=== PATIENT | male | born 2000 | race African-American/Black ===

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

== ENCOUNTER 2019-09-02 07:33 | Day surgery (SDC) | payer OTHER ==
[2019-09-01 11:45] VITALS: BMI 36.1
[2019-09-02] MEDS ORDERED: MIDAZOLAM HCL 2 MG/2 ML SINGLE DOSE VIAL ONE ×4 (08:44→09:33)
[2019-09-02] MEDS ORDERED: ROPIVACAINE HCL 0.5% 30ML VIAL ONE (08:44)
--- NOTE | 2019-09-02 09:16 | HP ---
Satellite H - Chief Complaint Chief Complaint: right shoulder pain - Past Medical History Allergies/Adverse Reactions: Allergies Allergy/AdvReac Type Severity Reaction Status Date / Time fish derived Allergy Verified 09/02/19 08:22 nut - unspecified Allergy Verified 09/02/19 08:22 soy Allergy Verified 09/02/19 08:22 wheat Allergy Verified 09/02/19 08:22 - Current Medications Current Medications: Home Medications Medication Instructions Recorded Fluticasone/Vilanterol [Breo 100 cap PO DAILY 09/01/19 Ellipta 100-25 Mcg INH] Oxycodone HCl/Acetaminophen 1 - 2 tab PO Q6H #30 tab MDD 6 09/02/19 [Percocet 5-325 mg Tablet] Satellite Physical Exam - Physical Examination Vital Signs: Vital Signs Period Temp Pulse Resp BP Sys/Fonseca Pulse Ox Last 24 Hr 97.9 F 78 18 131/68 99 General Appearance: Well Nourished, Well Developed, Alert & Oriented x3 ENT: Clear Lung: Normal air movement Extremities: Other (right shoulder- + ttp, dec rom, + apprehension, + obriens, nvi, MRI + labral tear) Neurological: Intact, Alert, Oriented Satellite Impression/Plan - Impression/Plan Impression: right shoulder internal derangement Operative Procedure: right shoulder arthroscopy with labral repair Date to be Performed: 09/02/19
[2019-09-02] MEDS ORDERED: ceFAZolin SODIUM 1 GM VIAL IVPB ONE (09:30)
[2019-09-02] MEDS ORDERED: ceFAZolin SODIUM 1 GM VIAL ONE (09:33)
[2019-09-02] MEDS ORDERED: PROPOFOL 20 ML ONE ×2 (09:50→10:05)
[2019-09-02] MEDS ORDERED: oxyCODONE HCL 5 MG TABLET PO PRN ×2 (10:21)
[2019-09-02] MEDS ORDERED: ONDANSETRON 4 MG/2 ML VIAL IVPUSH PRN (10:21)
--- NOTE | 2019-09-02 10:24 | OP ---
Operative Note - Note: Operative Date: 09/02/19 ([facility]) Pre-Operative Diagnosis: right shoulder internal derangement Operation: right shoulder arthroscopy with labral debridement Post-Operative Diagnosis: Same as Pre-op Surgeon: Jose Grimaldo Paving Contractor: Kin Hernandez Anesthesia: General, Local Specimens Removed: shavings Estimated Blood Loss (mls): 5
[2019-09-02] MEDS ORDERED: LACTATED RINGERS SOLUTION 1,000 ML IV SCH (10:30)
[2019-09-02] MEDS ORDERED: ACETAMINOPHEN 325 MG TABLET (FP) ONE (12:29)
[2019-09-02] MEDS ORDERED: ACETAMINOPHEN 325 MG TABLET (FP) PO ONE ×2 (12:30→12:32)
[2019-09-02] MEDS ORDERED: ONDANSETRON 4 MG/2 ML VIAL ONE (12:34)
[2019-09-02 13:52] VITALS: BP 125/60; PULSE 73; TEMP 98
--- NOTE | 2019-09-02 18:11 | OP ---
DATE OF OPERATION: 09/02/2019 PREOPERATIVE DIAGNOSIS: Right shoulder labral tear. POSTOPERATIVE DIAGNOSIS: Right shoulder labral tear. PROCEDURE: Arthroscopy, right shoulder, with labral debridement. SURGICAL ATTENDING: Gage Black M.D. ENGINEERING SYSTEMS ANALYST: Felipe Carrillo SECOND TOP FRAME MAKER: Jose Grimaldo M.D. ANESTHESIA: Regional and general. CLOSURE: 3-0 nylon. COMPLICATIONS: None. CONDITION: To recovery in stable condition. DESCRIPTION OF OPERATIVE PROCEDURE: The patient was taken to the operating room on September 02, 2019. Regional and general anesthesia were administered by the anesthesiologist. IV Kefzol was administered prophylactically prior to the case. The patient was placed in the beach-chair position with all prominences well padded. The right shoulder area was prepped and draped in the usual sterile fashion. The posterior portal was made 2 fingerbreadths below the trocar. The anterior portal was made under direct visualization using a spinal needle followed by a 15-blade blunt trochar. Circumferential exam of glenohumeral joint revealed the following: Intact glenoid and humeral head, articular cartilage, biceps and biceps anchor, loose bodies in the axillary pouch. The rotator cuff was intact throughout. The labrum was followed, was completely intact anteriorly, inferiorly. The biceps anchor and the superior anterior posterior labrum was found to be completely intact. Posteriorly, labrum was found to be slightly detached posteriorly but with a fraying. Most of the labrum was found to be intact in this area. Attempts were made to try to see if there was tissue to be repaired by passing suture lassos, but the torn portion of the labrum was very small, and there was just a lot debrided, and the rest of the labrum was left in situ. Probing on the revealed good stability throughout. The fluid was drained from the shoulder, and trocars were removed. The portals were closed using 3-0 nylon, sterile pressure dressing followed by a sling was applied. Patient was awakened from anesthesia and transferred to recovery in stable condition. No complications. Estimated blood loss negligible. JOSE GRIMALDO M.D. [id number]
--- NOTE | 2019-09-04 16:22 | PATH ---
Surgical Pathology Report Patient Name: TANI ESCOTO Med. Rec. #: [id number] /Age/Gender: 2000 (Age: 19) / M Account: [id number] Location: [facility] SUR[facility] Taken: 09/02/2019 Received: 09/02/2019 Reported: 09/04/2019 Physicians: Jose Grimaldo M.D. Specimen(s) Received RIGHT SHOULDER SHAVINGS Clinical History Right shoulder labral tear Final Diagnosis SHOULDER SHAVINGS, RIGHT, ARTHROSCOPY: FRAGMENTS OF BENIGN CARTILAGE, BONE, DENSE FIBROCONNECTIVE TISSUE, ADIPOSE TISSUE, AND SKELETAL MUSCLE. Electronically Signed Neha Zarate M.D. Gross Description Received in formalin, labeled "right shoulder shavings," is a 2.5 x 2.0 x 0.3 cm. aggregate of bradshaw-yellow soft tissue fragments. The specimen is entirely submitted in one cassette. 09/03/201909/03/2019
== END 2019-09-02 13:30 | disposition home or self-care (01) ==
LOC: JASU-SURG 07:33
PROVIDERS: ATTEND Orthopaedic Surgery
PROC: 0RBJ4ZZ Excision of Right Shoulder Joint, Percutaneous Endoscopic Approach (ICD-10-PCS; principal; 2019-09-02 09:30)
DX: S43.431A Superior glenoid labrum lesion of right shoulder, initial encounter (principal); X58.XXXA Exposure to other specified factors, initial encounter; Y93.9 Activity, unspecified; Y92.9 Unspecified place or not applicable
CPT/HCPCS: 88304-TC; 94760

== ENCOUNTER 2019-12-05 09:43 | Emergency (ER) | payer OTHER ==
[2019-12-05 10:01] VITALS: PULSE 65; TEMP 97.7; BMI 37.5
[2019-12-05] MEDS ORDERED: ACETAMINOPHEN 1000 MG/100 ML VIAL (NON FORMULARY) IVPB ONE (10:07)
[2019-12-05] MEDS ORDERED: SODIUM CHLORIDE 1,000 ML IV STA (10:07)
--- NOTE | 2019-12-05 10:07 | PDOC ---
History of Present Illness - General Chief Complaint: Pain Stated Complaint: ABDOMINAL PAIN Time Seen by Provider: 12/05/19 10:06 - History of Present Illness Initial Comments: 12/05/19 10:31 The patient is a 19 year old male with no significant PMH who presents for evaluation of abdominal pain and flank pain. The patient reports acute onset of left lower quadrant 10/10 sharp abdominal pain after a bowel movement this morning prompting his presentation to the ED for further evaluation. He states that the pain radiates to his left flank and is intermittent as well. He denies any similar symptoms in the past and otherwise denies fevers, chills, SOB , chest pain, nausea, vomiting, or changes with urination or bowel movements. Past History - Past Medical History Allergies/Adverse Reactions: Allergies Allergy/AdvReac Type Severity Reaction Status Date / Time fish derived Allergy Verified 12/05/19 09:54 nut - unspecified Allergy Verified 12/05/19 09:54 soy Allergy Verified 12/05/19 09:54 wheat Allergy Verified 12/05/19 09:54 Home Medications: Ambulatory Orders Fluticasone/Vilanterol [Breo Ellipta 100-25 Mcg INH] 100 cap PO DAILY 09/01/19 Anemia: No Asthma: Yes Cancer: No Cardiac Disorders: No CVA: No COPD: No CHF: No Dementia: No Diabetes: No GI Disorders: No Disorders: No HTN: No Hypercholesterolemia: No Liver Disease: No Seizures: No Thyroid Disease: No - Surgical History Abdominal Surgery: No Appendectomy: No Cardiac Surgery: No Cholecystectomy: No Lung Surgery: No Neurologic Surgery: No Orthopedic Surgery: No - Immunization History Immunization Up to Date: No - Psycho Social/Smoking Cessation Hx Smoking History: Never smoked Have you smoked in the past 12 months: No Information on smoking cessation initiated: No Hx Alcohol Use: No Drug/Substance Use Hx: No Substance Use Type: None Hx Substance Use Treatment: No Review of Systems - Review of Systems Comments:: 12/05/19 10:33 Constitutional: No fevers, chills, fatigue, malaise HEENT: No Rhinorrhea, nasal congestion, visual changes Cardiovascular: No chest pain, syncope, palpitations, lightheadedness Respiratory: No Cough, SOB, Hemoptysis, Gastrointestinal: Abdominal pain. No Nausea, Vomiting, Constipation, Diarrhea, Melena Genitourinary: Flank, pain. No Dysuria, Frequency, Urgency, Hesitancy, Hematuria , Musculoskeletal: No Myalgia, arthralgia Skin: No rashes, itching, bruising, pallor Neurologic: No Headache, Dizziness, Numbness, Weakness, or Tingling Psychiatric: No Hallucinations. No SI or HI *Physical Exam - Vital Signs Last Vital Signs Temp Pulse Resp BP Pulse Ox 97.7 F 65 22 H 110/61 100 12/05/19 09:52 12/05/19 09:52 12/05/19 09:52 12/05/19 09:52 12/05/19 09:52 - Physical Exam 12/05/19 10:33 General Appearance: Nourished. No Apparent Distress HEENT: No Pharyngeal Erythema, Tonsillar Exudate, Tonsillar Erythema Neck: No Cervical Lymphadenopathy Respiratory/Chest: Lungs Clear, Normal Breath Sounds. No Crackles, Rales, Rhonchi, Wheezing Cardiovascular: Regular Rhythm, Regular Rate. No Murmur, Gallops, Rubs Gastrointestinal/Abdominal: Normal Bowel Sounds, Soft. Mild left lower quadrant tenderness to palpation. No Guarding, Rebound, Genital Exam: Normal appearing glans, No discharge noted. Cremaster reflex present bilaterally. Normal testes bilaterally. Musculoskeletal: No CVA Tenderness Extremity: Normal Capillary Refill Integumentary: Normal Color, Dry, Warm Neurologic: Fully Oriented, Alert, Normal Mood/Affect, Normal Response, ED Treatment Course - LABORATORY CBC & Chemistry Diagram: 12/05/19 10:08 12/05/19 10:08 Medical Decision Making - Medical Decision Making 12/05/19 10:35 The patient is a 19 year old male with no significant PMH who presents for evaluation of abdominal pain and flank pain. Differential includes but is not limited to: Nephrolethiasis, UTI, Infectious, Metabolic derangement. Given the patient's history and physical exam, we will obtain a cbc, cmp, ua, urine culture, spiral renal CT to evaluate further. We will treat with tylenol, toradol, iv fluids and continue to monitor and reassess while here in the ED. 12/05/19 12:18 CBC, cmp, ua were unremarkable. CT did not demonstrate any acute pathology but noted a groundglass opacity in the right lower lobe as read by our radiologist. The patient has not respiratory complaints on exam and has been provided a copy of his results. The patient was reassessed and reports improvement in their symptoms. We are comfortable discharging the patient home in stable condition. Patient and family made aware of impression and plan, return precautions discussed including but not limited to worsening pain or symptoms, fevers, or signs of infection, chest pain, respiratory distress, inability to tolerate oral intake, dehydration, syncope, or neurologic changes. The patient is to follow up with PMD as recommended within 1 week, follow up information provided and the patient will call for an appointment. The patient is to take medications as instructed for duration of time and continue with supportive care , avoid triggers and precipitants. Patient is safe for outpatient follow-up. Discharge - Discharge Information Problems reviewed: Yes Clinical Impression/Diagnosis: Abdominal pain Qualifiers: Abdominal location: unspecified location Qualified Code(s): R10.9 - Unspecified abdominal pain Condition: Stable Disposition: HOME - Follow up/Referral Referrals: Clotilde Rodriguez MD [Primary Care Provider] - - Patient Discharge Instructions Patient Printed Discharge Instructions: DI for Abdominal Pain-Adult Additional Instructions: 1) Please follow-up with your primary care doctor in the next 2-3 days. Please call tomorrow to schedule a follow up appointment. If you cannot follow up with your doctor within 1 week please return to the Emergency Department for any urgent issues. 2) Your laboratory / imaging results were normal here in the ER. 3) If you have any worsening of symptoms or any other concerns, please return to the ER immediately. Return if worsening symptoms including fevers, headache, vomiting, visual or hearing disturbances, abdominal pain, chest pain, shortness of breath, syncope, dehydration, inability to take things by mouth/vomiting, altered mental status, or worsening concerning symptoms. 4) Please continue taking your home medications as directed. Side effects may include upset stomach, abdominal pain, vomiting, or diarrhea. Do not drink alcohol with your medications. - Post Discharge Activity
[2019-12-05] MEDS ORDERED: KETOROLAC TROMETHAMINE 30 MG/1 ML VIAL IVPUSH ONE (10:13)
[2019-12-05] MEDS ORDERED: ACETAMINOPHEN INJECTION 100 ML IVPB ONE (10:16)
[2019-12-05] MEDS ORDERED: KETOROLAC TROMETHAMINE 30 MG/1 ML VIAL ONE (10:16)
[2019-12-05 10:27] LABS: BASO % 1.3 % (0-2.0); EOS % 7.4 % (0-4.5); HEMATOCRIT 48.3 % (35.4-49); HEMOGLOBIN 16.5 GM/dL (11.7-16.9); MCHC 34.1 g/dl (32.0-35.9); MEAN CELL VOLUME 88.1 fl (80-96); MEAN PLT VOLUME 8.9 fl (7.5-11.1); NEUT % 35.3 % (42.8-82.8); PLATELET COUNT 161 K/MM3 (134-434); RBC 5.49 M/mm3 (4.00-5.60); RDW 14.4 % (11.9-15.9); WHITE BLOOD COUNT 4.6 K/mm3 (4.0-10.0)
[2019-12-05 10:40] LABS: URINE APPEARANCE CLEAR; URINE BILIRUBIN NEGATIVE (NEGATIVE); URINE COLOR YELLOW; URINE GLUCOSE (UA) NEGATIVE (NEGATIVE); URINE KETONE NEGATIVE (NEGATIVE); URINE LEUK ESTERASE NEGATIVE (NEGATIVE); URINE NITRITE NEGATIVE (NEGATIVE); URINE PROTEIN NEGATIVE (NEGATIVE)
[2019-12-05 10:53] LABS: ALBUMIN 4.1 g/dl (3.4-5.0); BILIRUBIN,TOTAL 0.8 mg/dL (0.2-1); BLOOD UREA NITROGEN 11.8 mg/dL (7-18); CALCIUM 9.7 mg/dL (8.5-10.1); CREATININE 1.3 mg/dL (0.55-1.3); TOT PROT 7.3 g/dl (6.4-8.2)
--- NOTE | 2019-12-05 10:59 | PDOC ---
Attending Attestation - Resident Resident Name: Benny Ford - ED Attending Attestation I have performed the following: I have examined & evaluated the patient, The case was reviewed & discussed with the resident, I agree w/resident's findings & plan, Exceptions are as noted - HPI HPI: 12/05/19 11:42 19-year-old gentleman history of asthma presenting with complaint of left lower quadrant pain. Patient states that he was in his usual state of health this morning he woke up had some snacks went to the restroom had a normal bowel movement. After his bowel movement approximately 2 minutes later he began to have a severe sharp left lower quadrant pain that is nonradiating without associated nausea, vomiting, chills, fevers, diarrhea, dysuria. There is no associated back pain or testicular pain. Patient states the pain was fairly severe until arrival. Patient denies having any history of similar pain in the past. Patient denies any other symptoms including recent cough, chest pain, lightheadedness, palpitations, urinary frequency, ingestion of new foods.; Exam: GENERAL: The patient is awake, alert, and fully oriented, Nontoxic - in no acute distress. HEAD: Normocephalic, atraumatic. LUNGS: Breath sounds equal, clear to auscultation bilaterally. No wheezes, no rhonchi, no rales. HEART: Regular rate and rhythm, normal S1 and S2 without murmur, rub or gallop. ABDOMEN: Soft, nontender, No guarding, no rebound. No CVA tenderness, negative Gonzalez signs, no tenderness at McBurney EXTREMITIES: Normal range of motion, no edema. NEUROLOGICAL: No facial assymetry, Normal speech, PSYCH: Normal mood, normal affect. SKIN: Warm, Dry, normal turgor, Differential for the patient's symptoms includes possible kidney stones, UTI, MSK pain, Obtained blood work, urine, CT of the abdomen. Patient's blood work and urine is unremarkable with signs of UTI or hematuria. CT results are pending Patient is currently feeling well, his abdominal exam currently is a normal exam without any focal tenderness rebound or CVA tenderness. - Physicial Exam PE: 12/06/19 09:52 see above - Medical Decision Making pts CT results were w/o any acute findings pt feeling improved rpeat exam shows soft nontender abdomen. will dc the pt with pmd outpt fu return precautions were discussed including any abd pain, fever/cihlls, vomiting or other concerns.
[2019-12-05 12:38] VITALS: BP 112/98
== END 2019-12-05 12:39 | disposition home or self-care (01) ==
LOC: JER 09:43
PROC: 3E033NZ Introduction of Analgesics, Hypnotics, Sedatives into Peripheral Vein, Percutaneous Approach (ICD-10-PCS; principal; 2019-12-05)
PROC: 3E0333Z Introduction of Anti-inflammatory into Peripheral Vein, Percutaneous Approach (ICD-10-PCS; 2019-12-05)
DX: R10.32 Left lower quadrant pain (principal); Z91.013 Allergy to seafood; Z91.018 Allergy to other foods
CPT/HCPCS: 36415; 74176-TC; 80053; 81003; 83690; 85025; 87086; 99285-25; J0131; J7030

== ENCOUNTER 2020-08-20 03:36 | Inpatient (IN) | payer OTHER ==
[2020-08-20] MEDS ORDERED: SODIUM CHLORIDE 2,722 ML IV ONE (04:05)
[2020-08-20 04:39] LABS: BASO % 0.7 % (0-2.0); EOS % 8.8 % (0-4.5); HEMATOCRIT 51.4 % (35.4-49); HEMOGLOBIN 17.3 GM/dL (11.7-16.9); LYMPH % 30.7 % (8-40); MCH 29.8 pg (25.7-33.7); MCHC 33.6 g/dl (32.0-35.9); MEAN CELL VOLUME 88.5 fl (80-96); MEAN PLT VOLUME 8.9 fl (7.5-11.1); MONO % 12.3 % (3.8-10.2); NEUT % 47.5 % (42.8-82.8); PLATELET COUNT 160 K/MM3 (134-434); RBC 5.81 M/mm3 (4.00-5.60); RDW 13.9 % (11.9-15.9); WHITE BLOOD COUNT 5.5 K/mm3 (4.0-10.0)
[2020-08-20] MEDS ORDERED: METOCLOPRAMIDE HCL INJECTION 10 MG/2 ML VIAL IVPUSH ONE (04:47)
[2020-08-20] MEDS ORDERED: ACETAMINOPHEN 1000 MG/100 ML VIAL (NON FORMULARY) IVPB ONE (04:47)
[2020-08-20 04:51] LABS: INR 1.04 (0.83-1.09); PROTHROMBIN TIME (PATIENT) 12.6 SEC (9.7-13.0)
[2020-08-20 04:52] LABS: CHLORIDE 105 mmol/L (98-107); POTASSIUM 4.1 mmol/L (3.5-5.1); SODIUM 139 mmol/L (136-145)
[2020-08-20] MEDS ORDERED: METOCLOPRAMIDE HCL INJECTION 10 MG/2 ML VIAL ONE (04:52)
[2020-08-20 04:54] LABS: CALCIUM 9.1 mg/dL (8.5-10.1)
[2020-08-20 04:55] LABS: ALBUMIN 4.1 g/dl (3.4-5.0); ANION GAP 7 MMOL/L (8-16); BLOOD UREA NITROGEN 14.2 mg/dL (7-18); CO2 27 mmol/L (21-32); GLUCOSE,RANDOM 104 mg/dL (74-106)
[2020-08-20 04:58] LABS: CREATININE 1.1 mg/dL (0.55-1.3); SGOT/AST 28 U/L (15-37); SGPT/ALT 37 U/L (13-61)
[2020-08-20 05:00] LABS: BILIRUBIN,TOTAL 0.6 mg/dL (0.2-1); TOT PROT 7.6 g/dl (6.4-8.2)
[2020-08-20 05:01] LABS: ALK PHOS 52 U/L (45-117)
[2020-08-20] MEDS ORDERED: LORazepam 2 MG/ML SDV VIAL ONE (06:14)
[2020-08-20] MEDS ORDERED: LIDOCAINE HCL 1%, 10 MG/ML (20ML VIAL) ONE (06:20)
[2020-08-20] MEDS ORDERED: LIDOCAINE HCL 1%, 10 MG/ML (50 mL VIAL) SQ ONE (06:20)
[2020-08-20] MEDS ORDERED: CEFTRIAXONE 1 GM in DEXTROSE 5%-WATER - 100 ML IVPB ONE ×2 (07:04→07:12)
[2020-08-20] MEDS ORDERED: VANCOMYCIN 1,000 MG in DEXTROSE 5%-WATER - 250 ML IVPB ONE (07:04)
[2020-08-20] MEDS ORDERED: CEFTRIAXONE 2 GM in DEXTROSE 5%-WATER - 50 ML IVPB ONE (07:14)
[2020-08-20] MEDS ORDERED: CEFTRIAXONE 2 GM/100 ML BAG IVPB ONE (07:30)
[2020-08-20] MEDS ORDERED: VANCOMYCIN 1 GRAM (PRE-DOCKED) 1,000 MG/250 ML BAG IVPB ONE (07:30)
[2020-08-20] MEDS ORDERED: ACETAMINOPHEN 325 MG TABLET (FP) ONE (11:36)
[2020-08-20] MEDS: ACETAMINOPHEN 500 MG TABLET (FP) PO PRN ×3 (11:53→20:07)
[2020-08-20] MEDS ORDERED: ACETAMINOPHEN 500 MG TABLET (FP) ONE ×2 (16:04→17:11)
[2020-08-20] MEDS ORDERED: ACETAMINOPHEN 500 MG TABLET (FP) PO ONE ×2 (17:12→21:00)
[2020-08-20 20:33] VITALS: BMI 38.2
[2020-08-20 20:54] LABS: EPI CELLS 8 /uL (0-25.1); HYALINE CASTS 2 /uL (0-3.1); PH,URINE 6.5 (5.0-8.0); URINE APPEARANCE CLEAR; URINE BACTERIA 5 /uL (0-1359); URINE BILIRUBIN NEGATIVE (NEGATIVE); URINE COLOR YELLOW; URINE GLUCOSE (UA) NEGATIVE (NEGATIVE); URINE KETONE 1+ (NEGATIVE); URINE LEUK ESTERASE NEGATIVE (NEGATIVE); URINE NITRITE NEGATIVE (NEGATIVE); URINE PROTEIN TRACE (NEGATIVE); URINE RBC 7 /uL (0-23.9); URINE WBC 5 /uL (0-25.8)
[2020-08-21] MEDS: ACETAMINOPHEN 500 MG TABLET (FP) PO PRN ×3 (09:58→21:34)
[2020-08-21] MEDS ORDERED: DEXTROSE 5%-WATER 100 ML IVPB ONE (13:24)
[2020-08-21] MEDS: CEFTRIAXONE 2 GM in DEXTROSE 5%-WATER 100 ML IVPB SCH (13:27)
[2020-08-21] MEDS ORDERED: WATER IVPB SCH ×2 (14:15→14:16)
[2020-08-21] MEDS ORDERED: ACYCLOVIR 1000 MG (50MG/ML) VIAL IVPB SCH (14:15)
[2020-08-21] MEDS ORDERED: ACYCLOVIR SODIUM IVPB SCH ×2 (14:15→14:16)
[2020-08-21] MEDS ORDERED: DEXTROSE 5% IVPB SCH ×2 (14:15→14:16)
[2020-08-21] MEDS: D5-1/2NS+20 MEQ KCL - 20 MEQ/1,000 ML INFUS.BAG IV SCH (16:36)
[2020-08-21] MEDS: DEXTROSE 5% IVPB SCH ×2 (16:37→21:47)
[2020-08-21] MEDS: ACYCLOVIR SODIUM IVPB SCH ×2 (16:37→21:47)
[2020-08-21] MEDS: WATER IVPB SCH ×2 (16:37→21:47)
[2020-08-21] MEDS: VANCOMYCIN 1 GRAM (PRE-DOCKED) 1,000 MG/250 ML BAG IVPB SCH (18:51)
[2020-08-21] MEDS ORDERED: PT OWN MED DRAWER 7, Y5N ONE (20:51)
[2020-08-21] MEDS: BUDESONIDE/FORMETEROL FUMARATE 160/4.5 mcg INHALER IH SCH (21:32)
[2020-08-21] MEDS: DORZOLAMIDE 2% HCL OPHTHALMIC SOLUTION 10 ML BOTTLE OU SCH (21:33)
[2020-08-22] MEDS: VANCOMYCIN 1 GRAM (PRE-DOCKED) 1,000 MG/250 ML BAG IVPB SCH ×2 (04:18→18:41)
[2020-08-22] MEDS: DEXTROSE 5% IVPB SCH ×3 (06:45→22:08)
[2020-08-22] MEDS: ACYCLOVIR SODIUM IVPB SCH ×3 (06:45→22:08)
[2020-08-22] MEDS: WATER IVPB SCH ×3 (06:45→22:08)
[2020-08-22] MEDS ORDERED: DEXTROSE 5%-WATER 100 ML IVPB ONE (11:48)
[2020-08-22] MEDS: CEFTRIAXONE 2 GM in DEXTROSE 5%-WATER 100 ML IVPB SCH (11:59)
[2020-08-22] MEDS: BUDESONIDE/FORMETEROL FUMARATE 160/4.5 mcg INHALER IH SCH ×2 (12:01→22:07)
[2020-08-22] MEDS: DORZOLAMIDE 2% HCL OPHTHALMIC SOLUTION 10 ML BOTTLE OU SCH ×2 (12:02→22:07)
[2020-08-22] MEDS ORDERED: PT OWN MED DRAWER 7, Y5N ONE ×2 (16:10→21:26)
[2020-08-22] MEDS: D5-1/2NS+20 MEQ KCL - 20 MEQ/1,000 ML INFUS.BAG IV SCH (16:20)
[2020-08-22 18:17] LABS: CSF APPEARANCE CLEAR; CSF COLOR COLORLESS
[2020-08-22 18:20] LABS: CSF WBC 318
[2020-08-22 18:55] LABS: BF GLUCOSE (CSF ONLY) 44 mg/dL (40-70)
[2020-08-23] MEDS: VANCOMYCIN 1 GRAM (PRE-DOCKED) 1,000 MG/250 ML BAG IVPB SCH (04:09)
[2020-08-23] MEDS: DEXTROSE 5% IVPB SCH ×3 (06:54→21:54)
[2020-08-23] MEDS: WATER IVPB SCH ×3 (06:54→21:54)
[2020-08-23] MEDS: ACYCLOVIR SODIUM IVPB SCH ×3 (06:54→21:54)
[2020-08-23 08:27] LABS: HEMATOCRIT 49.8 % (35.4-49); HEMOGLOBIN 17.1 GM/dL (11.7-16.9); MCH 30.6 pg (25.7-33.7); MCHC 34.3 g/dl (32.0-35.9); MEAN CELL VOLUME 89.3 fl (80-96); PLATELET COUNT 186 K/MM3 (134-434); RBC 5.58 M/mm3 (4.00-5.60); RDW 13.7 % (11.9-15.9); WHITE BLOOD COUNT 6.8 K/mm3 (4.0-10.0)
[2020-08-23 08:40] LABS: POTASSIUM 4.1 mmol/L (3.5-5.1)
[2020-08-23 08:49] LABS: ALBUMIN 3.8 g/dl (3.4-5.0); BLOOD UREA NITROGEN 10.5 mg/dL (7-18); CALCIUM 9.2 mg/dL (8.5-10.1)
[2020-08-23] MEDS ORDERED: DEXTROSE 5%-WATER 100 ML IVPB ONE (08:53)
[2020-08-23 08:54] LABS: BILIRUBIN,TOTAL 0.6 mg/dL (0.2-1); TOT PROT 7.4 g/dl (6.4-8.2)
[2020-08-23] MEDS: CEFTRIAXONE 2 GM in DEXTROSE 5%-WATER 100 ML IVPB SCH (09:02)
[2020-08-23] MEDS: DORZOLAMIDE 2% HCL OPHTHALMIC SOLUTION 10 ML BOTTLE OU SCH ×2 (09:06→21:54)
[2020-08-23] MEDS: BUDESONIDE/FORMETEROL FUMARATE 160/4.5 mcg INHALER IH SCH ×2 (09:06→21:54)
[2020-08-23] MEDS ORDERED: PT OWN MED DRAWER 7, Y5N ONE ×3 (14:20→21:51)
[2020-08-23] MEDS: D5-1/2NS+20 MEQ KCL - 20 MEQ/1,000 ML INFUS.BAG IV SCH ×2 (14:50→18:35)
[2020-08-24] MEDS ORDERED: PT OWN MED DRAWER 7, Y5N ONE ×2 (05:35→07:29)
[2020-08-24] MEDS: WATER IVPB SCH ×3 (05:46→22:19)
[2020-08-24] MEDS: DEXTROSE 5% IVPB SCH ×3 (05:46→22:19)
[2020-08-24] MEDS: ACYCLOVIR SODIUM IVPB SCH ×3 (05:46→22:19)
[2020-08-24] MEDS: D5-1/2NS+20 MEQ KCL - 20 MEQ/1,000 ML INFUS.BAG IV SCH ×2 (05:47→19:59)
[2020-08-24] MEDS ORDERED: INSULIN (LEVEMIR) 100 UNITS/ML UNITS SQ ONE (07:29)
[2020-08-24] MEDS ORDERED: INSULIN (NOVOLOG) ASPART 100 UNITS/ML 10ML VIAL ONE (07:29)
[2020-08-24] MEDS: DORZOLAMIDE 2% HCL OPHTHALMIC SOLUTION 10 ML BOTTLE OU SCH ×2 (09:41→22:19)
[2020-08-24] MEDS: BUDESONIDE/FORMETEROL FUMARATE 160/4.5 mcg INHALER IH SCH ×2 (09:41→22:19)
[2020-08-24] MEDS ORDERED: FLU VACCINE (FLULAVAL) PF 60 MCG/0.5 ML SYRINGE 2020-2021 IM ONE (21:06)
[2020-08-25] MEDS ORDERED: PT OWN MED DRAWER 7, Y5N ONE (05:28)
[2020-08-25] MEDS: DEXTROSE 5% IVPB SCH ×2 (05:44→14:37)
[2020-08-25] MEDS: ACYCLOVIR SODIUM IVPB SCH ×2 (05:44→14:37)
[2020-08-25] MEDS: WATER IVPB SCH ×2 (05:44→14:37)
[2020-08-25] MEDS: BUDESONIDE/FORMETEROL FUMARATE 160/4.5 mcg INHALER IH SCH (10:12)
[2020-08-25] MEDS: DORZOLAMIDE 2% HCL OPHTHALMIC SOLUTION 10 ML BOTTLE OU SCH (10:12)
[2020-08-25] MEDS: D5-1/2NS+20 MEQ KCL - 20 MEQ/1,000 ML INFUS.BAG IV SCH (11:41)
[2020-08-25 14:30] VITALS: BP 143/82; PULSE 89; TEMP 98.4
== END 2020-08-25 16:57 | disposition home or self-care (01) | DRG 76 ==
LOC: JER 03:36 → JERBED 07:41 → J5S 18:35
PROVIDERS: ADMIT Internal Medicine; ATTEND Internal Medicine
PROC: 009U3ZX Drainage of Spinal Canal, Percutaneous Approach, Diagnostic (ICD-10-PCS; principal; 2020-08-22)
DX: A87.9 Viral meningitis, unspecified (principal); Z68.38 Body mass index [BMI] 38.0-38.9, adult; E66.9 Obesity, unspecified; Z86.19 Personal history of other infectious and parasitic diseases; G47.33 Obstructive sleep apnea (adult) (pediatric); J45.30 Mild persistent asthma, uncomplicated
CPT/HCPCS: 36415; 62272; 70450-TC; 70496-TC; 70498-TC; 70551-TC; 71045-TC-FY; 77002-TC-FY; 80053; 81003; 82945; 83605; 84157; 84484; 85025; 85027; 85610; 85730; 86617; 86618; 87040; 87070; 87086; 87205; 87529; 93005; 93010; 99285-25; C9803; J0131; Q2036; U0003

== ENCOUNTER 2020-10-16 17:56 | Emergency (ER) | payer OTHER ==
[2020-10-16 18:12] VITALS: BP 125/69; PULSE 83; TEMP 98.6; BMI 37.5
[2020-10-16] MEDS ORDERED: DEXAMETHASONE LIQUID 0.5 MG/5 ML PO ONE (19:40)
[2020-10-16] MEDS ORDERED: DEXAMETHASONE SOD PHOSPHATE 10 MG/1 ML VIAL ONE (20:03)
== END 2020-10-16 20:33 | disposition home or self-care (01) ==
LOC: JERFT 17:56
DX: J45.901 Unspecified asthma with (acute) exacerbation (principal)
CPT/HCPCS: 71046-TC-FY; 93005; 93010; 99284-25

== ENCOUNTER 2022-05-26 03:36 | Inpatient (IN) | payer OTHER ==
[2022-05-26] MEDS ORDERED: ALBUTEROL SO4 2.5/IPRATROPIUM 0.5 INH SOL 3 ML VIAL.NEB. NEB ONE ×3 (03:45→05:18)
[2022-05-26] MEDS ORDERED: MAGNESIUM SULFATE IN WATER 2 GM/50 ML IVPB IVPB ONE (03:54)
[2022-05-26] MEDS ORDERED: methylPREDNISolone NA SUCC 125 MG/2 ML VIAL ONE (03:54)
[2022-05-26 04:15] VITALS: BMI 36.0
[2022-05-26] MEDS ORDERED: MAGNESIUM SULF 50% (8.12 MEQ/2 ML-1 GM VIAL) IVPB ONE (04:15)
[2022-05-26] MEDS ORDERED: methylPREDNISolone NA SUCC 125 MG/2 ML VIAL IVPUSH ONE (04:15)
[2022-05-26] MEDS: ALBUTEROL SO4 0.083% IH SOL 2.5 MG/3 ML VIAL.NEB. NEB SCH ×3 (05:03→05:34)
[2022-05-26] MEDS ORDERED: ONDANSETRON 4 MG/2 ML VIAL IVPUSH ONE (05:15)
[2022-05-26] MEDS ORDERED: ONDANSETRON 4 MG/2 ML VIAL ONE (05:27)
[2022-05-26 06:18] LABS: HEMATOCRIT 47.2 % (35.4-49); HEMOGLOBIN 16.4 GM/dL (11.7-16.9); MCH 30.9 pg (25.7-33.7); MCHC 34.7 g/dl (32.0-35.9); MEAN CELL VOLUME 89.1 fl (80-96); MEAN PLT VOLUME 8.9 fl (7.5-11.1); PLATELET COUNT 161 10^3/uL (134-434); RDW 14.2 % (11.9-15.9); WHITE BLOOD COUNT 10.7 K/mm3 (4.0-10.0)
[2022-05-26] MEDS ORDERED: ALBUTEROL SO4 0.083% IH SOL 2.5 MG/3 ML VIAL.NEB. NEB ONE ×2 (06:30→11:20)
[2022-05-26] MEDS ORDERED: SODIUM CHLORIDE 0.9% 500 ML INFUS.BAG IV ONE (06:34)
[2022-05-26 06:37] LABS: ALBUMIN 3.9 g/dl (3.4-5.0); CALCIUM 8.3 mg/dL (8.5-10.1); MAGNESIUM 2.4 mg/dL (1.8-2.4)
[2022-05-26 06:40] LABS: CREATININE 1.2 mg/dL (0.55-1.3)
[2022-05-26 06:42] LABS: BILIRUBIN,TOTAL 0.8 mg/dL (0.2-1); TOT PROT 6.8 g/dl (6.4-8.2)
[2022-05-26 08:27] LABS: CALCIUM 8.6 mg/dL (8.5-10.1)
[2022-05-26 08:28] LABS: BLOOD UREA NITROGEN 10.9 mg/dL (7-18)
[2022-05-26 08:31] LABS: CREATININE 1.2 mg/dL (0.55-1.3)
[2022-05-26 09:26] LABS: ANISOCYTOSIS 1+; MACROCYTOSIS 0
[2022-05-26] MEDS ORDERED: ACETAMINOPHEN 325 MG TABLET (FP) PO PRN ×2 (11:06→11:46)
[2022-05-26] MEDS ORDERED: AZITHROMYCIN IVPB 500 MG in DEXTROSE 5%-WATER - 250 ML IVPB ONE (11:07)
[2022-05-26] MEDS ORDERED: methylPREDNISolone NA SUCC 125 MG/2 ML VIAL IVPUSH SCH (11:15)
[2022-05-26] MEDS ORDERED: methylPREDNISolone NA SUCC 40 MG/1 ML VIAL ONE ×3 (11:16→23:26)
[2022-05-26] MEDS ORDERED: AZITHROMYCIN IVPB 500 MG/250 ML BAG IVPB ONE ×2 (11:16→11:24)
[2022-05-26] MEDS: methylPREDNISolone NA SUCC 40 MG/1 ML VIAL IVPUSH SCH ×3 (11:31→23:40)
[2022-05-26] MEDS ORDERED: PIPERACILLIN/TAZOB 3.375 GM 3.375 GM in DEXTROSE 5%-WATER - 50 ML IVPB SCH ×2 (12:00→18:00)
[2022-05-26] MEDS ORDERED: DORZOLAMIDE 2% HCL OPHTHALMIC SOLUTION 10 ML BOTTLE OU SCH (22:00)
[2022-05-27 05:11] VITALS: TEMP 98.5
[2022-05-27] MEDS ORDERED: methylPREDNISolone NA SUCC 40 MG/1 ML VIAL ONE (06:05)
[2022-05-27] MEDS: methylPREDNISolone NA SUCC 40 MG/1 ML VIAL IVPUSH SCH (06:17)
[2022-05-27] MEDS ORDERED: ENOXAPARIN NA (PORCINE) 40 MG/0.4 ML DISP.SYRIN SQ SCH (10:00)
[2022-05-27] MEDS ORDERED: predniSONE 20 MG TABLET (UD) PO SCH (10:00)
[2022-05-27 10:44] VITALS: BP 119/72; PULSE 76; RESP 18
== END 2022-05-27 10:30 | disposition home or self-care (01) | DRG 203 ==
LOC: JER 03:36 → JERBED 05:39
PROVIDERS: ADMIT Internal Medicine; ATTEND Internal Medicine
DX: J45.21 Mild intermittent asthma with (acute) exacerbation (principal); R09.02 Hypoxemia
CPT/HCPCS: 36415; 71046-TC-FY; 80048; 80053; 83735; 85025; 93005; 93010; 99285-25; C9803-CS; U0003; U0005

== ENCOUNTER 2022-11-22 20:24 | Emergency (ER) | payer OTHER ==
[2022-11-22 20:34] VITALS: BP 118/86; PULSE 85; RESP 16; TEMP 98; BMI 34.2
[2022-11-22] MEDS ORDERED: ACETAMINOPHEN 500 MG TABLET (FP) PO ONE (21:50)
[2022-11-22] MEDS ORDERED: ACETAMINOPHEN 325 MG TABLET (FP) ONE (21:53)
[2022-11-22 22:35] LABS: BASO % 0.6 % (0-2.0); EOS % 4.9 % (0-4.5); HEMATOCRIT 50.4 % (35.4-49); HEMOGLOBIN 17.3 GM/dL (11.7-16.9); LYMPH % 17.1 % (8-40); MCH 31.2 pg (25.7-33.7); MCHC 34.3 g/dl (32.0-35.9); MEAN CELL VOLUME 90.7 fl (80-96); MEAN PLT VOLUME 8.9 fl (7.5-11.1); MONO % 4.9 % (3.8-10.2); NEUT % 72.5 % (42.8-82.8); PLATELET COUNT 189 10^3/uL (134-434); RBC 5.56 M/mm3 (4.00-5.60); RDW 14.3 % (11.9-15.9); WHITE BLOOD COUNT 9.2 K/mm3 (4.0-10.0)
[2022-11-22 22:41] LABS: INR 1.03 (0.83-1.09)
[2022-11-22 22:43] LABS: ACTIVATED PTT 27.4 SECONDS (25.2-36.5)
[2022-11-22 22:58] LABS: CALCIUM 9.6 mg/dL (8.5-10.1)
[2022-11-22 22:59] LABS: ALBUMIN 4.6 g/dl (3.4-5.0); BLOOD UREA NITROGEN 11.3 mg/dL (7-18)
[2022-11-22 23:02] LABS: CREATININE 1.2 mg/dL (0.55-1.3)
[2022-11-22 23:03] LABS: TOT PROT 7.6 g/dl (6.4-8.2)
[2022-11-23] MEDS ORDERED: ALBUTEROL SO4 2.5/IPRATROPIUM 0.5 INH SOL 3 ML VIAL.NEB. NEB ONE (01:15)
[2022-11-23] MEDS: ALBUTEROL SO4 2.5/IPRATROPIUM 0.5 INH SOL 3 ML VIAL.NEB. NEB SCH ×3 (01:17→01:38)
== END 2022-11-23 02:09 | disposition home or self-care (01) ==
LOC: JER 20:24
PROC: 3E0F7GC Introduction of Other Therapeutic Substance into Respiratory Tract, Via Natural or Artificial Opening (ICD-10-PCS; principal; 2022-11-22)
DX: M79.641 Pain in right hand (principal); R42 Dizziness and giddiness; R51.9 Headache, unspecified; V49.40XA Driver injured in collision with unspecified motor vehicles in traffic accident, initial encounter
CPT/HCPCS: 36415; 70450-TC; 70486-TC; 71046-TC-FY; 71250-TC; 72125-TC; 72170-TC-FY; 73070-TC-RT-FY; 73090-TC-RT-FY; 73110-TC-RT-FY; 73130-TC-RT-FY; 74177-TC; 80053; 85025; 85610; 85730; 86850; 86900; 86901; 93005; 93010; 99285-25; Q9967

== ENCOUNTER 2022-12-05 00:08 | Emergency (ER) | payer OTHER ==
[2022-12-05 00:18] VITALS: BP 108/74; PULSE 65; RESP 18; TEMP 97.6; BMI 34.9
[2022-12-05] MEDS ORDERED: morphine CARPU-JECT 2 MG/1 ML DISP.SYRIN IVPUSH ONE (00:48)
[2022-12-05] MEDS ORDERED: SODIUM CHLORIDE 1,000 ML IV STA (00:48)
[2022-12-05] MEDS ORDERED: ONDANSETRON 4 MG/2 ML VIAL IVPUSH ONE (00:48)
[2022-12-05] MEDS ORDERED: ONDANSETRON 4 MG/2 ML VIAL ONE (00:53)
[2022-12-05] MEDS ORDERED: ALBUTEROL SO4 0.083% IH SOL 2.5 MG/3 ML VIAL.NEB. NEB ONE ×2 (00:55→02:08)
[2022-12-05] MEDS ORDERED: METOCLOPRAMIDE HCL INJECTION 10 MG/2 ML VIAL IVPB ONE (01:26)
[2022-12-05] MEDS ORDERED: METOCLOPRAMIDE HCL INJECTION 10 MG/2 ML VIAL ONE (01:27)
[2022-12-05] MEDS ORDERED: KETOROLAC TROMETHAMINE 30 MG/1 ML VIAL IVPUSH ONE (01:27)
[2022-12-05] MEDS ORDERED: KETOROLAC TROMETHAMINE 30 MG/1 ML VIAL ONE (01:27)
[2022-12-05] MEDS ORDERED: KETOROLAC TROMETHAMINE 15 MG/ML VIAL IVPUSH ONE (01:27)
[2022-12-05 02:08] LABS: BASO % 0.8 % (0-2.0); EOS % 4.5 % (0-4.5); HEMATOCRIT 48.9 % (35.4-49); HEMOGLOBIN 17.2 GM/dL (11.7-16.9); LYMPH % 18.7 % (8-40); MCH 31.8 pg (25.7-33.7); MCHC 35.1 g/dl (32.0-35.9); MEAN CELL VOLUME 90.5 fl (80-96); MEAN PLT VOLUME 9.2 fl (7.5-11.1); PLATELET COUNT 164 10^3/uL (134-434); RDW 14.3 % (11.9-15.9)
[2022-12-05 02:16] LABS: INR 1.08 (0.83-1.09); PROTHROMBIN TIME (PATIENT) 12.5 SEC (9.7-13.0)
[2022-12-05 02:19] LABS: ACTIVATED PTT 26.7 SECONDS (25.2-36.5)
[2022-12-05 03:03] LABS: CALCIUM 9.1 mg/dL (8.5-10.1)
[2022-12-05 03:04] LABS: ALBUMIN 4.4 g/dl (3.4-5.0); BLOOD UREA NITROGEN 13.6 mg/dL (7-18)
[2022-12-05 03:07] LABS: CREATININE 1.2 mg/dL (0.55-1.3)
[2022-12-05 03:09] LABS: BILIRUBIN,TOTAL 0.9 mg/dL (0.2-1); TOT PROT 7.2 g/dl (6.4-8.2)
[2022-12-05 03:30] LABS: EPI CELLS 13 /uL (0-25.1); HYALINE CASTS 3 /uL (0-3.1); URINE APPEARANCE CLEAR; URINE BACTERIA 18 /uL (0-1359); URINE BILIRUBIN NEGATIVE (NEGATIVE); URINE COLOR DK YELLOW; URINE GLUCOSE (UA) NEGATIVE (NEGATIVE); URINE KETONE 1+ (NEGATIVE); URINE LEUK ESTERASE NEGATIVE (NEGATIVE); URINE NITRITE NEGATIVE (NEGATIVE); URINE PROTEIN 1+ (NEGATIVE); URINE RBC 232 /uL (0-23.9); URINE WBC 41 /uL (0-25.8)
== END 2022-12-05 04:00 | disposition home or self-care (01) ==
LOC: JER 00:08
PROC: 3E033GC Introduction of Other Therapeutic Substance into Peripheral Vein, Percutaneous Approach (ICD-10-PCS; principal; 2022-12-05)
PROC: 3E0F7GC Introduction of Other Therapeutic Substance into Respiratory Tract, Via Natural or Artificial Opening (ICD-10-PCS; 2022-12-05)
DX: N20.0 Calculus of kidney (principal); J45.909 Unspecified asthma, uncomplicated
CPT/HCPCS: 36415; 74176-TC; 80053; 81003; 85025; 85610; 85730; 99285-25

== ENCOUNTER 2023-06-21 01:25 | Emergency (ER) | payer OTHER ==
[2023-06-21 01:35] VITALS: BP 111/60; PULSE 67; RESP 20; TEMP 98.4; BMI 34.9
[2023-06-21 02:20] LABS: EPI CELLS 6 /uL (0-25.1); HYALINE CASTS 1 /uL (0-3.1); PH,URINE 5.5 (5.0-8.0); URINE APPEARANCE CLEAR; URINE BACTERIA 3 /uL (0-1359); URINE BILIRUBIN NEGATIVE (NEGATIVE); URINE COLOR DK YELLOW; URINE GLUCOSE (UA) NEGATIVE (NEGATIVE); URINE KETONE TRACE (NEGATIVE); URINE LEUK ESTERASE NEGATIVE (NEGATIVE); URINE NITRITE NEGATIVE (NEGATIVE); URINE PROTEIN 1+ (NEGATIVE); URINE RBC 418 /uL (0-23.9); URINE WBC 29 /uL (0-25.8)
== END 2023-06-21 03:00 | disposition home or self-care (01) ==
LOC: JER 01:25
DX: R10.9 Unspecified abdominal pain (principal)
CPT/HCPCS: 81003; 87086; 99283-25

== ENCOUNTER 2024-01-28 08:44 | Emergency (ER) | payer OTHER ==
[2024-01-28 09:00] VITALS: BP 116/70; PULSE 70; RESP 20; TEMP 97.6; BMI 36.3
[2024-01-28 09:29] LABS: THROAT:GRP A STREP NOT DETECTED (NOTDETECTED)
[2024-01-28] MEDS ORDERED: IBUPROFEN 600 MG TABLET (FP) PO ONE (09:42)
[2024-01-28] MEDS: IBUPROFEN 600 MG TABLET (FP) PO ONE (09:45)
== END 2024-01-28 10:06 | disposition home or self-care (01) ==
LOC: JERFT 08:44 → JER 08:44 → JERFT 10:06
DX: R05.9 Cough, unspecified (principal); R51.9 Headache, unspecified; Z20.822 Contact with and (suspected) exposure to COVID-19
CPT/HCPCS: 0241U-QW; 87651; 99283-25

== ENCOUNTER 2025-03-19 01:00 | Emergency (ER) | payer OTHER ==
[2025-03-19 01:14] VITALS: TEMP 99.1; BMI 41.3
[2025-03-19] MEDS ORDERED: ALBUTEROL SO4 2.5/IPRATROPIUM 0.5 INH SOL 3 ML VIAL.NEB. NEB ONE ×2 (01:17→01:57)
[2025-03-19] MEDS: ALBUTEROL SO4 2.5/IPRATROPIUM 0.5 INH SOL 3 ML VIAL.NEB. NEB SCH (01:24)
[2025-03-19] MEDS: methylPREDNISolone NA SUCC 125 MG/2 ML VIAL IVPB ONE (01:52)
[2025-03-19] MEDS ORDERED: methylPREDNISolone NA SUCC 125 MG/2 ML VIAL ONE (01:56)
[2025-03-19] MEDS ORDERED: ALBUTEROL SO4 0.083% IH SOL 2.5 MG/3 ML VIAL.NEB. NEB ONE (03:28)
[2025-03-19] MEDS ORDERED: ALBUTEROL SO4 HFA INHALER IH ONE (03:29)
[2025-03-19 03:32] VITALS: BP 112/84; PULSE 77; RESP 18
== END 2025-03-19 04:27 | disposition home or self-care (01) ==
LOC: JER 01:00
PROC: 3E033GC Introduction of Other Therapeutic Substance into Peripheral Vein, Percutaneous Approach (ICD-10-PCS; principal; 2025-03-19)
PROC: 3E0F7GC Introduction of Other Therapeutic Substance into Respiratory Tract, Via Natural or Artificial Opening (ICD-10-PCS; 2025-03-19)
PROC: 3E0F7GC Introduction of Other Therapeutic Substance into Respiratory Tract, Via Natural or Artificial Opening (ICD-10-PCS; 2025-03-19)
DX: J45.901 Unspecified asthma with (acute) exacerbation (principal); R06.02 Shortness of breath; R07.89 Other chest pain
CPT/HCPCS: 0241U-QW; 71046-TC-FY; 99284-25